=== PATIENT | female | born 1955 | race Caucasian/White ===

== ENCOUNTER 2021-10-30 07:07 | Day surgery (SDC) | payer OTHER, SELFPAY ==
--- OUTSIDE RECORDS SUMMARY | 2021-10-11 10:17 | XMS_ITS | Continuity of Care Document ---
:1955 Author Care Team Providers Name Role Phone TONY HEDRICK Attending Physician TONY HEDRICK Primary Care Physician Allergies, Adverse Reactions, Alerts Allergen Type Severity Reaction Last Verified Status Updated Aspirin Allergy Unknown NAUSEA, August 06, Yes Active VOMITING 2021 Ibuprofen Allergy Moderate GI UPSET August 06, Yes Active 2021 Naproxen Allergy Moderate GI UPSET August 06, Yes Active 2021 Penicillin v Allergy Severe rash August 06, Yes Activ e 2021 Citalopram Allergy Mild fatigue, August 06, Yes Active out of 2021 body Sulfa Allergy Unknown August 06, Yes Active Antibiotics 2021 Social History Smoking Status Status Start Date End Date Date of Observat ion Never smoked tobacco August 09, 2021 11:12am (finding) Additional Data Assigned Sex Female Problems Active Problems Medical Problem Onset Date Status Hyperlipidemia July 01, 2010 Active Irritable Bowel Syndrome July 01, 2010 Active Depression July 01, 2010 Active Hysteroscopy 2005 July 01, 2010 Resolved Tubal Ligation July 01, 2010 Resolved Encounter for laboratory testing Active for COVID-19 virus Medications Medication Status Dose Units Route Directions Qty Days Start End Ins tructions Date Date Cyclobenzapri Active 10 MG as needed ne Hcl Estradiol Active 1 GRAMS PV Daily 42.5 (Estrace Vaginal Cream) 0.1 Mg/Gm CRE Estradiol Active Vaginal (Estradiol) 10 Mcg TAB Metronidazole Active 1 KYLER TOP Twice A Day 60 August (Metrolotion) , 0.75 % LOT 2020 4:47pm Ondansetron Active 4 MG PO Every 6 30 Hcl (Zofran) Hours as 4 Mg TAB needed Pantoprazole Active 40 MG PO Daily 30 Sodium Sertraline Active 25 MG PO Daily 30 Hcl (Zoloft) 25 Mg TAB Tramadol Hcl Active 50-10 MG PO Every 6 30 0 Hours as needed Trazodone Hcl Active 100 MG PO Bedtime as 30 needed Acetaminophen Disconti 500-1 MG PO Every 6 100 June nued 000 Hours as er 9th, needed 2020 3:43pm 3:58pm Citalopram Disconti 1 TABLET PO Daily June Hydrobromide nued , (Celexa) 2010 Mg TAB 4:17pm 10:28a m Citalopram Disconti 1 TABLET PO Daily June Hydrobromide nued , (Celexa) 2010 Mg TAB 4:34pm 4:17pm Cyclobenzapri Disconti 1 - 2 TABLET PO Three Times 17 July Ju ne PRN MUSCLE ne Hcl nued A Day as , SPASM (Flexeril) 5 needed 2010 2010 Mg TAB 5:09pm 10:28a m Diclofenac Disconti August nued 2016 1:34pm Diclofenac Disconti 75 MG PO Twice A Day October Sodium nued 2018 11:24a m Doxycycline Disconti 100 MG PO Twice Daily July t Monohydrate nued For 10 Days 2019 12:38pm 1:59pm Estradiol Disconti 1 GRAMS PV Mwf 42.5 August (Estrace nued , Vaginal 2017 Cream) 0.01 % 1:34pm CRE Estradiol Disconti 25 MCG VA Twice January Vaginal nued Weekly Qhs , carolee (Vagifem) 25 2011 01, Mcg TAB 4:04pm 2018 3:58pm Estrogens Disconti 0 PV Daily Octoberobe Conjugated nued 13, r (Premarin 2010, Cream) 0.625 3:42pm 2010 Mg/1 Gm CRE 3:50pm Estrogens Disconti 0.625 MG VA Twice Octoberobe USE 1/ 2 Conjugated nued Weekly At 13, r APPLI CATOR (Premarin) Hs 2010, FULL 0.625 Mg CR 3:42pm 2010 3:50pm Methylprednis Disconti 1 PACK PO Once June DUGLAS E olone (Medrol nued , , DIRECT ED ON Dose-Basilio) 4 2010 2010 PACKAGE Mg TAB 5:09pm 10:28a m Naproxen Disconti 500 MG PO Twice A Day January (Naprosyn) nued , , 500 Mg TAB 2010 2016 4:06pm 1:34pm Naproxen Disconti 500 MG PO Twice A Day Octobe (Naprosyn) nued r 500 Mg TAB 2010 4:06pm Omeprazole Disconti 20 MG PO Daily nued 2018 3:34pm Omeprazole Disconti 20 MG PO Daily August nued 2017 4:06pm Ondansetron Disconti 4 MG PO Every 8 17 July Hcl nued Hours as , 2020 3:43pm Oxycodone Hcl Disconti 5 MG PO Every 4-6 November em nued Hours as needed 2020, 12:43pm 2020 2:47pm Oxycodone Hcl Disconti 5-10 MG PO Every 4-6 16 November nued Hours as , 2018 11:24a m Oxycodone Hcl Disconti 0.5-1 MG PO Every 6 September nued Hours as , needed 2018 2018 2:47pm 11:24a m Pantoprazole Disconti 20 MG PO Daily 17 October Sodium nued 2018 8:16am Pregabalin Disconti 50 MG PO Daily June (Lyrica) 50 nued , Mg CAP 2020 3:43pm Pregabalin Disconti 25 MG PO Twice A Day September (Lyrica) 25 nued , , Mg CAP 2010 2010 10:43am 3:19pm Probiotic Disconti 1 CAP OR Daily July Product nued , (Probiotic 2016 Formula) 11:36a Formula CAP m Tizanidine Disconti 4 MG July Hcl nued 2021 3:32pm Tizanidine Disconti 4 MG PO Every 25 November Hcl nued Hours as , (Zanaflex) 4 needed 2020 Mg CAP 12:38p m Tramadol Hcl Disconti 50-10 MG PO Q6h Prn 60 November M AX 400 (Ultram) 50 nued 0 13th, MG/DAY Mg TAB 2020 12:38p m Tramadol Hcl Disconti 50 MG PO Q4-6H Prn 180 Novemoctober MAX 400 (Ultram) 50 nued r , MG/DAY Mg TAB 2010 2018 10:10am 11:24a m Tramadol Hcl Disconti 50 MG PO Q4-6H Prn 60 January mb MAX 400 (Ultram) 50 nued , er MG/DAY Mg TAB 2010 06, 4:05pm 2010 10:10a m Tramadol Hcl Disconti 50 MG PO Q4-6H Prn 30 October Octobe MAX 400 (Ultram) 50 nued , r MG/DAY Mg TAB 2010, 4:32pm 2010 4:05pm Trazodone Hcl Disconti 2 TABS OR Bedtime 180 Novemoctober nued r , 2010 10:09am 11:24a m Trazodone Hcl Disconti 50 MG OR Bedtime 90 January b nued , er 2010 06, 4:05pm 2010 10:09a m Trazodone Hcl Disconti 50 MG OR Bedtime Octobe nued r 2010 4:05pm Zolpidem Disconti 12.5 MG PO Daily November Tartrate Er nued 2020 9:49am Immunizations Immunization Event Date Not Given Dose Black Leather Buffer Lot Vac cine Reason Number Number Informatio n Statement (VIS) Deta il COVID-19 Pfizer May 082020 COVID-19 Pfizer May 29, 2020 COVID-19 Pfizer February 062020 Herpes Zoster May 212015 Influenza January 292011 Influenza January 28, 2015 Influenza December 22, 2016 Influenza December 212016 Influenza December 232017 Influenza December 14, 2018 Influenza December 192020 Shingrix July 282017 Shingrix February 18, 2017 Tdap March 20 (adolescent/adul 2013 t) Medical Equipment Device Date Implanted Device Details Arthrex September 27, 2018 STEPHEN: [id number] Issuing Agency: [employer] Device Id: [id number] Expiration Date: 04-21-27 Lot Number: [id number] Arthrex November 02, 2019 STEPHEN: [id number] Issuing Agency: [facility] Device Id: [id number] Expiration Date: 06-27-29 Lot Number: [id number] Advance Directives Advance Directive Response Recorded Date/Time Does Pt have Health Care No December 16 9:42am Directive? Has patient completed a No December 03 9:59am Health Care Directive? Insurance Providers Guarantor Mary Jo Gonsalves Address [address] [place] [address] Contact Info. Home Phone: CELL Payer Policy Id Coverage Id Subscriber's Subscriber Id Effective E xpiration Name Date Date [facility] [id number] Mary Gonsalves Choice
[2021-10-28] MEDS: CEFAZOLIN 2 GM INJ IVP (08:36)
[2021-10-30] VITALS (23 sets, daily range): BP systolic 105–174; BP diastolic 71–118; PULSE 54–80; RESP 14–18; TEMP 35.6–37.2; O2SAT 97–100; BMI 17.5
[2021-10-30] MEDS: LACTATED RINGERS 1000 ML 1,000 ML 100 ML IV (07:50)
[2021-10-30] MEDS: CELECOXIB 200 MG CAPSULE PO ×2 (07:55→20:42)
[2021-10-30] MEDS: OXYCODONE (CR) 10 MG TAB.ER.12H PO (07:55)
[2021-10-30] MEDS: ACETAMINOPHEN 500 MG TABLET 1000 MG PO ×3 (07:55→20:41)
[2021-10-30] MEDS: MIDAZOLAM HCL 1 MG/ML inj IVP (08:05)
[2021-10-30] MEDS: fentaNYL 100 MCG/2 ML inj IVP (08:05)
--- NOTE | 2021-10-30 08:50 | W.PM.NB ---
Nerve Block Nerve Block Time Seen by Provider: 08:00 Date Seen: 10/30/21 Type of block requested by surgeon for post-operative analgesia: adductor canal Side: right Time out performed: Yes Verification of patient name: Yes Verification of date of : Yes Site marking: site marked Name of person performing procedure: Robin Assistants, if any: Gelymbrogoleksandr Continuous monitoring Was continuous monitoring of O2 sat, B/P, hand laminator, recorded every 15 minutes?: Yes Procedure Checklist: sterile prep, needles and gloves Ultrasound guided. Images saved: Yes Medications given in 5ml increments after negative aspiration: Ropivicaine %: 0.5 mL: 15 Needle gauge: 22 Decadron (mg): 8 Precedex (mcg): 20 Patient tolerated procedure well: Yes Additional comments: Needle noted adjacent to nerve
--- NOTE | 2021-10-30 08:52 | P.NB_ITS ---
Nerve Block Nerve Block Time Seen by Provider: 08:00 Date Seen: 10/30/21 Type of block requested by surgeon for post-operative analgesia: geniculars Side: right Time out performed: Yes Verification of patient name: Yes Verification of date of : Yes Site marking: site marked Name of person performing procedure: Robin Assistants, if any: Gelymbrogoleksandr Continuous monitoring Was continuous monitoring of O2 sat, B/P, gambling monitor, recorded every 15 minutes?: Yes Procedure Checklist: sterile prep, needles and gloves Medications given in 5ml increments after negative aspiration: Ropivicaine %: 0.5 mL: 6 Needle gauge: 25 Patient tolerated procedure well: Yes
--- NOTE | 2021-10-30 10:03 | CRLHL7_ITS ---
For Patients: As a result of the Cures Act, medical imaging exams and procedure reports are released immediately into your electronic medical record. You may view this report before your referring provider. If you have questions, please contact your health care provider. Indication: POST OP RIGHT TKA Technique: 2 views right knee Findings/Impression: Hardware from a right total knee arthroplasty is in satisfactory position. Bone alignment is normal. No sign of acute fracture. Postop changes are within normal limits. Dictated by Reese Rosario MD @ 10/30/2021 11:10:47 AM (Electronically Signed)
--- NOTE | 2021-10-30 10:32 | SUR.PREOP ---
TIME?OUT:?0804 PT/Parris Escobedo RN/Dr. Robin MDA?VERIFICATION?OF?SURGICAL?SITE right knee,?PROCEDURE,?AND?CONSENT OBTAINED?PRIOR?TO?INVASIVE?PROCEDURE.
--- NOTE | 2021-10-30 10:40 | W.ANESCHARGE ---
Anesthesia Charges Start Date/Time Anesthesia Start Date: 10/30/21 Anesthesia Start Time: 08:23 Stop Date/Time Anesthesia Stop Date: 10/30/21 Anesthesia Stop Time: 10:40 Summary Emergency: No
--- NOTE | 2021-10-30 11:17 | P.ORPRC_ITS ---
Procedure Note Procedure: PREOPERATIVE DIAGNOSIS: 1. Right knee osteoarthritis, primary, severe POSTOPERATIVE DIAGNOSIS: 1. Right knee osteoarthritis, primary, severe PROCEDURE: 1. Right total knee arthroplasty SURGEON: Israel Lund MD. FILLING MACHINE TENDER: Lazaro LAW - Of note, a skilled hardware sales assistant was critical for this case to aid in patient positioning, tissue retraction, limb manipulation/positioning, and closure. ANESTHESIA: [Spinal] anesthetic IMPLANTS: DePuy J&J all cemented TKA - [Attune] PS femur size 3 regular, size 2 tibia, 5 mm poly spacer, 32 mm patella TOURNIQUET: [90 min at 225 torr] EBL: [50 ml] COMPLICATIONS: [None evident] INDICATIONS: The patient is a pleasant 66-year-old female who has experienced severe right knee pain and difficulty bearing weight. Workup included x-rays which revealed severe osteoarthrosis in the knee. Given the deformity, the dysfunction, and the pain, as well as the failure of nonoperative management, recommendation was made for surgery. FINDINGS: Full-thickness chondral loss medial femoral condyle and medial tibial plateau. Substantial chondromalacia patellofemoral compartment as well. No loose bodies. Moderate effusion. DESCRIPTION OF PROCEDURE: Following a thorough discussion of risks, benefits, and alternatives consent was obtained and the right knee was marked. The patient was brought to the operating room and placed supine on the operating table. Induction of anesthesia was undertaken. 1 g IV Ancef and 500 mg tranexamic acid was administered within 1 hr of incision preoperatively. Proper time-out was performed identifying proper patient, site, procedure. The operative extremity was prepped and draped in the appropriate sterile fashion using ChloraPrep after the patient was positioned supine with all bony prominences well padded. A longitudinal, anterior, midline skin incision was made starting approximately 3cm proximal to the superior pole of the patella and advanced distal to the tibial tubercle. A median parapatellar arthrotomy was created. A medial subperiosteal sleeve was created with knife, maldonado elevator and curved osteotome. The retropatellar fatpad was resected and the synovium in the suprapatellar pouch excised to visualize the anterior femoral cortex. Femoral preparation was performed via an intramedullary guide. Step drill allowed access into the femoral canal. The distal cutting guide was placed with [5]? of valgus and 10 mm cut on the distal femur initially but another 2 mm did require resection. Femur was sized using a [posterior] referencing guide in [3]? of external rotation. This found have a best fit with the sizing noted above. The 4 in 1 cutting block was then placed, and the distal femur shaped accordingly. The box cut was then created and the trial implant inserted to confirm appropriate fit. We turned our attention to the proximal tibia. Extramedullary guide was utilized for cutting with the goal of being 90 degree cut from the mechanical axis of the tibia in the varus/valgus plane utilizing tibial crest as the primary alignment. Initially a [2] mm resection was performed from the medial tibial plateau. An additional 2 mm to require resection to again achieve proper balance in both flexion and extension to varus and valgus stress. The knee was able to achieve full extension as well comfortably. The patella was initially measured and found have a thickness of 18 mm. It was resected back to approximately 14 mm. It was sized to be a best fit with as noted above. This was drilled, trial placed. All trials were placed and found to have an excellent stability and balance. At this stage, trial implants were removed, the knee was thoroughly irrigated with normal saline, and the cement was mixed. After irrigation, the knee was thoroughly dried, and cement placed, with the real tibial and femoral implants placed along with the patella. Trial poly spacer was placed and confirmed to have excellent range of motion and full extension, and the real poly spacer opened and inserted. All extra cement was removed, and a 3 min Betadine soak performed. Finally, a final irrigation round with normal saline was performed. Closure performed with 0 Vicryl and #0 Stratafix for the quad tendon/retinaculum. 2-0 Vicryl for the subcutaneous and 4-0 Stratafix for subcuticular closure. Dressings were applied and the patient was awoken from anesthesia after the tourniquet deflated and transferred the PACU in stable c ondition. A skilled hardware sales assistant was critical for this case to aid in patient positioning, tissue retraction, bone exposure, limb manipulation/positioning, patient safety, and closure. PLAN: 1. Weight bear as tolerated operative extremity. 2. 23 hr perioperative antibiotics. 3. Ice. 4. PT/OT consults for ambulation assistance/mobility education. 5. Social work consult for discharge planning. 6. DVT prophylaxis with at SCDs, Shahab Momin, and [aspirin twice daily.] Anesthesia: spinal Surgeon: Israel Lund Operations Management Trainee: Lazaro Escobedo
--- NOTE | 2021-10-30 12:09 | W.ANESCHARGE ---
Anesthesia Charges Start Date/Time Anesthesia Start Date: 10/30/21 Anesthesia Start Time: 08:23 Stop Date/Time Anesthesia Stop Date: 10/30/21 Anesthesia Stop Time: 10:40 Summary Emergency: No
[2021-10-30] MEDS: LACTATED RINGERS 1000 ML 1,000 ML 75 ML IV (12:38)
[2021-10-30] MEDS: OXYCODONE 5 MG TABLET PO ×4 (12:38→22:14)
--- NOTE | 2021-10-30 13:31 | P.IMCN_ITS ---
Date of Consult Consult date: 10/30/21 Requesting Physician: Orthopedics (Dr. Dinh) Primary Care Provider: Judith Encinas PA-C Consult Narrative Reason for consult: Medical management of comorbidities Narrative: Shelley Carlos is a 66 year old female who was admitted to the hospital today for a right TKA. She had no complications during surgery or anesthesia administration. Hospitalist team was consulted given patient's comorbidities of mild anxiety, insomnia, chronic pain, arthritis, postmenopausal status on topical HRT, and GERD. Patient's PCP is Judith Encinas locally. Her preoperative exam was done less weak and identified no concerns. Preoperative hemoglobin was 12.8, she was noted to have a normal GFR as well. Patient has no history of blood clots, she is not on oral HRT. She is a nondrinker, non tobacco user, recently retired from [employer], and lives locally with her . Review of Systems Status of ROS: Reports: 10 or more systems reviewed and unremarkable except as noted in History and below PFSH PFS Medical History (Updated 10/30/21 @ 13:36 by Evelyn Machado MD) Hyperlipidemia IBS (irritable bowel syndrome) Osteoarth NOS-other site Osteoarthritis Rosacea Surgical History (Updated 10/15/21 @ 13:53 by Zaynab Josue RN) H/O tubal ligation (02/04/89) History of arthroscopy of left shoulder (09/27/18) History of arthroscopy of right shoulder (08/21/16) Trigger finger of right hand (12/08/11) Family History (Updated 10/15/21 @ 13:20 by Zaynab Josue, RN) Mother Ovarian cancer CHF (congestive heart failure) History of open heart surgery High blood pressure Obesity Osteoarthritis Father COPD (chronic obstructive pulmonary disease) High blood pressure Racing heart beat Brother Lung cancer Racing heart beat Heart attack Sister Multiple sclerosis Social History Smoking Status: Never smoker How often do you have a drink containing alcohol: never AUDIT-C Alcohol total score: 0 Non-prescribed substance use: denies use Caffeine: No service: No Meds Home Medications and Allergies Home Medications Medication Instructions Recorded Confirmed Type cyclobenzaprine 10 mg tablet 10 mg PO BID 10/29/21 10/29/21 History estradiol 0.01% (0.1 mg/gram) 1 appful VAGINAL MOWEFR 10/29/21 10/29/21 History vaginal cream (Estrace) estradiol 10 mcg vaginal tablet 10 mcg VAGINAL 2XW 10/29/21 10/29/21 History ondansetron HCl 4 mg tablet 4 mg PO Q8H PRN 10/29/21 10/29/21 History pantoprazole 40 mg tablet,delayed 40 mg PO QAM 10/29/21 10/30/21 History release sertraline 25 mg tablet 25 mg PO DAILY 10/29/21 10/30/21 History tramadol 50 mg tablet 75 mg PO Q6H PRN 10/29/21 10/30/21 History trazodone 100 mg tablet 200 mg PO HS 10/29/21 10/29/21 History Home Medication Comments: Confirmed with patient Allergies Allergy/AdvReac Type Severity Reaction Status Date / Time penicillin V Allergy Mild Rash Verified 10/30/21 07:37 ibuprofen Allergy ulcer Verified 10/30/21 07:37 Sulfa (Sulfonamide Allergy Rash Verified 10/30/21 07:37 Antibiotics) Exam Narrative: Exam Narrative: GEN: Alert and oriented, answering questions appropriately, eating lunch during our exam HEENT: Normal external ears, EOMIs bilaterally, no scleral icterus CV: RRR, No concerning murmurs, rubs, or gallops R: LCTA bilaterally without concerning wheezing, rales, or rhonchi Ext: wwp, no concerning edema Skin: No concerning skin lesions or rashes on exposed skin Neuro: Nonfocal, no resting tremor Psych: Appropriate Const: Vital Signs, click to edit/add: Vital Signs - 24 hr 10/30/21 08:04 10/30/21 08:06 10/30/21 08:10 Temperature 97.3 F L Pulse Rate 76 80 79 Pulse Rate [Pulse Oximeter] Respiratory Rate 16 16 16 Blood Pressure 132/82 138/77 121/81 Blood Pressure [Le ft Arm] Pulse Oximetry 99 99 99 10/30/21 08:15 10/30/21 10:37 10/30/21 10:40 Temperature 97 F L Pulse Rate 73 62 60 Pulse Rate [Pulse Oximeter] Respiratory Rate 16 14 16 Blood Pressure 110/71 105/71 115/71 Blood Pressure [Le ft Arm] Pulse Oximetry 99 98 97 10/30/21 10:45 10/30/21 10:50 10/30/21 10:55 Temperature 97.2 F L 97.2 F L Pulse Rate 62 60 60 Pulse Rate [Pulse Oximeter] Respiratory Rate 16 16 16 Blood Pressure 117/74 116/77 112/72 Blood Pressure [Le ft Arm] Pulse Oximetry 98 97 10/30/21 11:00 10/30/21 11:30 10/30/21 11:45 Temperature Pulse Rate 61 Pulse Rate [Pulse Oximeter] 55 L 61 Respiratory Rate 16 14 14 Blood Pressure 126/76 Blood Pressure [Le ft Arm] 115/75 131/81 Pulse Oximetry 99 100 98 10/30/21 12:00 10/30/21 12:15 10/30/21 12:19 Temperature 96.1 F L Pulse Rate 54 L Pulse Rate [Pulse Oximeter] 66 73 Respiratory Rate 14 14 14 Blood Pressure Blood Pressure [Le ft Arm] 136/84 144/83 H Pulse Oximetry 99 99 10/30/21 12:30 Temperature Pulse Rate Pulse Rate [Pulse Oximeter] 62 Respiratory Rate 14 Blood Pressure Blood Pressure [Le ft Arm] 148/118 H Pulse Oximetry 99 Assessment and Plan Assessment and plan (1) GERD (gastroesophageal reflux disease): Status: Acute (2) Insomnia: Status: Acute (3) Chronic pain: Status: Acute (4) Osteoarth NOS-other site: Status: Acute Plan Continue home medications for comorbidities as noted above monitor pain management closely given chronic tramadol use as an outpatient.
--- NOTE | 2021-10-30 15:12 | PC.NURSE ---
Pt. up to floor at 1115. Pt. alert, oriented x3. denies nausea. tolerated reg. diet. Pt. rated pain in right Knee 5/10, 10mg Oxy administered it's coming back down. Dressing clean dry and intact, cryocuff to site. Pt. does not like ice water.
[2021-10-30] MEDS: HYDROmorphone 0.5 mg/0.5 ml inj IVP (15:37)
[2021-10-30] MEDS: ASPIRIN 81 MG TABLET EC PO (20:41)
[2021-10-30] MEDS: SENNOSIDES 1 TAB TABLET 2 TAB PO (20:42)
[2021-10-30] MEDS: CYCLOBENZAPRINE HCL 10 MG TABLET PO (20:42)
[2021-10-30] MEDS: TRAZODONE HCL 50 MG TABLET 200 MG PO (22:16)
[2021-10-31] MEDS: ACETAMINOPHEN 500 MG TABLET 1000 MG PO ×2 (02:01→08:23)
[2021-10-31 03:00] VITALS: BP 154/82; PULSE 73; RESP 16; TEMP 37.6; O2SAT 99
--- NOTE | 2021-10-31 06:11 | PC.NURSE ---
SHIFT NOTE [id number]: PT PLEASANT AND COOPERATIVE. AMBULATES WITH WALKER, GB, SBA. RIGHT KNEE DRESSING CDI. CRYO CUFF ON. PT RATES RLE PAIN 4-6/10 WITH RELIEF FROM SCHEDULED AND PRN MEDICATION (SEE MAR). PT VSS ON RA.
[2021-10-31 07:00] VITALS: BP 140/77; PULSE 77; RESP 16; TEMP 36.1; O2SAT 100
[2021-10-31 07:28] LABS: Basophils Percent Auto 0.1 % (0.0-3.0); Eosinophils Percent Auto 0.2 % (0.0-7.0); Hematocrit 35.9 % (33.0-51.0); Hemoglobin* 12.3 gm/dL (12.0-16.0); Immature Granulocytes Abs Auto 0.03 K/uL (0.00-0.30); Lymphocytes Percent Auto 23.4 % (20-44); Mean Corpuscular HGB Conc 34 gm/dL (32-36); Mean Corpuscular Hemoglobin 30 pg (26-34); Mean Corpuscular Volume 88 fL (80-100); Monocytes Percent Auto 8.9 % (0.0-11.0); Neutrophils Percent Auto 67.2 % (42.0-72.0); Platelet Count* 283 K/uL (140-440); RDW Coefficient of Variation % 12.4 % (11.5-15.5); White Blood Count* 15.93 K/uL (4.50-11.00)
[2021-10-31 07:32] LABS: Slide Review Reflex No
[2021-10-31 07:46] LABS: INR 1.07 (0.91-1.10); Prothrombin Time 14.3 Seconds
[2021-10-31] MEDS: OXYCODONE 5 MG TABLET PO ×2 (07:48→12:01)
[2021-10-31 07:50] LABS: Chloride* 103 mmol/L (96-114); Potassium* 3.4 mmol/L (3.6-5.1); Sodium* 139 mmol/L (135-149)
[2021-10-31 07:53] LABS: Carbon Dioxide* 27 mmol/L (20-32); Creatinine* 0.7 mg/dL (0.5-1.5); Est. Creatinine Clearance* 34.48; Estimated Glomerular Filt Rate 95.32
[2021-10-31 07:54] LABS: Blood Urea Nitrogen* 13 mg/dL (7-30); Calcium* 8.9 mg/dL (8.4-10.6); Glucose* 117 mg/dL (60-115)
[2021-10-31] MEDS: ASPIRIN 81 MG TABLET EC PO (08:24)
[2021-10-31] MEDS: SERTRALINE 50 MG TABLET 25 MG PO (08:24)
[2021-10-31] MEDS: CYCLOBENZAPRINE HCL 10 MG TABLET PO (08:24)
[2021-10-31] MEDS: SENNOSIDES 1 TAB TABLET 2 TAB PO (08:25)
[2021-10-31] MEDS: CELECOXIB 200 MG CAPSULE PO (08:25)
[2021-10-31] MEDS: OMEPRAZOLE 20 MG CAPSULE DR 40 MG PO (08:25)
--- NOTE | 2021-10-31 10:24 | NUTR.NU ---
RDN with nutrition screen related to underweight BMI. RDN visited with patient whom reported meals have been going well for her. 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 She reports having issues after surgery with some weight loss and dumping syndrome. She limits her carbohydrate and fat intake. She reports some weight loss after surgery, however her weight has been stable recently. Current weight 87 lbs; weight 08/06/21 85 lbs. Height 59 inches; BMI is underweight at 17.6 kg/m2. Regular diet with meal intakes 75-100% x2 since admit. Patient had no questions or concerns at this time. No nutrition interventions. RDN will continue to monitor and follow-up prn.
--- NOTE | 2021-10-31 10:38 | P.DS_ITS ---
DS: Providers Provider Primary care physician: Judith Encinas PA-C Consults: 10/30/21 11:00 Consult to Occupational Therapy [CONS] Routine Comment: See nursing Activity Order Reason(s) for OT Consult:: Evaluate and Treat Any Restrictions?:: No Restrictions Consult to Physical Therapy [CONS] Routine Comment: Ambulate in the rowell today. Reason(s) for PT Consult:: Evaluate and Treat Any Restrictions?:: No Restrictions Consult to Physician [CONS] Routine Comment: Consulting Provider: Hospitalists Has provider been notified: No Consult to Asphalt Still Operator [CONS] Routine Comment: Reason for Consult:: Discharge Planning Needs Attending Physician on discharge: Israel Lund MD DS: Diagnosis Discharge Diagnosis (1) Osteoarth NOS-other site: Status: Acute DS: Summary Hospital Course Hospital Course: Kirsten was admitted to the hospital on 10/30/2021 for right TKA. Hospitalist team was consulted given comorbidities as noted in H&P. Patient did well postoperatively, had quite a bit of pain right after surgery, but much improved on postoperative day 1. Her comorbidities remained stable. Only change made to home medications upon discharge is discontinuation of tramadol (was on this preoperatively, will be discharged home on oxycodone. Recommend follow-up with PCP in 3-4 weeks to discuss pain management going forward, as patient may need less tramadol now that she has had her knee replaced.) Kirsten will be discharged home today with routine follow-up with therapies, orthopedic surgery, and PCP. Time Spent with Patient Time attestation: Total time spent providing and/or coordinating discharge services: Time spent: Less than 30 minutes Exam Narrative: Exam Narrative: GEN: Alert and oriented, answering questions appropriately HEENT: Normal external ears, EOMIs bilaterally, no scleral icterus CV: RRR, No concerning murmurs, rubs, or gallops R: LCTA bilaterally without concerning wheezing, rales, or rhonchi Ext: wwp, no concerning edema Skin: No concerning skin lesions or rashes on exposed skin Neuro: Nonfocal Psych: Appropriate Const: Vital Signs, click to edit/add: Vital Signs - 24 hr 10/30/21 10:40 10/30/21 10:45 10/30/21 10:50 Temperature 97.2 F L Pulse Rate 60 62 60 Pulse Rate [Pulse Oximeter] Respiratory Rate 16 16 16 Blood Pressure 115/71 117/74 116/77 Blood Pressure [Le ft Arm] Pulse Oximetry 97 98 10/30/21 10:55 10/30/21 11:00 10/30/21 11:30 Temperature 97.2 F L Pulse Rate 60 61 Pulse Rate [Pulse Oximeter] 55 L Respiratory Rate 16 16 14 Blood Pressure 112/72 126/76 Blood Pressure [Le ft Arm] 115/75 Pulse Oximetry 97 99 100 10/30/21 11:45 10/30/21 12:00 10/30/21 12:15 Temperature Pulse Rate Pulse Rate [Pulse Oximeter] 61 66 73 Respiratory Rate 14 14 14 Blood Pressure Blood Pressure [Le ft Arm] 131/81 136/84 144/83 H Pulse Oximetry 98 99 99 10/30/21 12:19 10/30/21 12:30 10/30/21 13:00 Temperature 96.1 F L Pulse Rate 54 L Pulse Rate [Pulse Oximeter] 62 68 Respiratory Rate 14 14 14 Blood Pressure Blood Pressure [Le ft Arm] 148/118 H 155/80 H Pulse Oximetry 99 100 10/30/21 14:00 10/30/21 15:00 10/30/21 16:00 Temperature 97.0 F L 96.1 F L 97.4 F L Pulse Rate Pulse Rate [Pulse Oximeter] 74 76 69 Respiratory Rate 14 18 18 Blood Pressure Blood Pressure [Le ft Arm] 164/98 H 145/100 H 138/72 Pulse Oximetry 98 99 100 10/30/21 17:00 10/30/21 20:30 10/30/21 23:00 Temperature 97.9 F 98.9 F 99.0 F Pulse Rate Pulse Rate [Pulse Oximeter] 71 78 78 Respiratory Rate 18 18 18 Blood Pressure Blood Pressure [Le ft Arm] 142/82 H 157/86 H 174/96 H Pulse Oximetry 98 97 99 10/31/21 03:00 10/31/21 07:00 Temperature 99.6 F 97.0 F L Pulse Rate Pulse Rate [Pulse Oximeter] 73 77 Respiratory Rate 16 16 Blood Pressure Blood Pressure [Le ft Arm] 154/82 H 140/77 H Pulse Oximetry 99 100 DS: Data Data Completed and Pending Labs on day of discharge: Labs from last 24 hours 10/31/21 10/31/21 10/31/21 06:31 06:31 06:31 WBC 15.93 H RBC 4.10 Hgb 12.3 Hct 35.9 MCV 88 MCH 30 MCHC 34 RDW Coeff of Liyah 12.4 Plt Count 283 Neut % (Auto) 67.2 Lymph % (Auto) 23.4 [place] % (Auto) 8.9 Eos % (Auto) 0.2 Baso % (Auto) 0.1 Neut # (Auto) 10.70 H Lymph # (Auto) 3.70 H [place] # (Auto) 1.40 H Eos # (Auto) 0.00 Baso # (Auto) 0.00 Abs Immat Gran (auto) 0.03 INR 1.07 Sodium 139 Potassium 3.4 L Chloride 103 Carbon Dioxide 27 BUN 13 Creatinine 0.7 Estimated Creat Clear 34.48 Glucose 117 H Calcium 8.9 Discharge Plan Discharge Disposition: Home, Self-Care Discharging Surgeon: Graham Marshall Follow-Up Appointment: as scheduled with ortho and therapy Prescriptions: New oxycodone 5 mg tablet 2.5 - 5 mg PO Q4-6H MDD 6 PRN (Reason: pain) Qty: 42 0RF Rx Instructions: Take as needed for pain: 2.5mg mild pain, 5mg moderate-severe pain. Wean as tolerated. acetaminophen 500 mg capsule 500 - 1,000 mg PO Q6H MDD 4000mg PRNQty: 100 0RF aspirin 81 mg tablet,delayed release (DR/EC) 81 mg PO BID Qty: 60 0RF celecoxib 200 mg capsule 200 mg PO BID Qty: 60 0RF sennosides-docusate sodium [Senna-S] 8.6-50 mg tablet 1 - 2 tab-cap PO BID Qty: 60 0RF Rx Instructions: Hold medication if experiencing loose stools. Continued cyclobenzaprine 10 mg tablet 10 mg PO BID 0RF estradiol [Estrace] 0.01 % (0.1 mg/gram) cream 1 appful vaginal MOWEFR 0RF Rx Instructions: for 14 days estradiol 10 mcg tablet 10 mcg vaginal 2XW 0RF ondansetron HCl 4 mg tablet 4 mg PO Q8H PRN0RF sertraline 25 mg tablet 25 mg PO DAILY 0RF trazodone 100 mg tablet 200 mg PO HS 0RF pantoprazole 40 mg tablet,delayed release (DR/EC) 40 mg PO QAM 0RF metronidazole 0.75 % gel 1 applic topical BID Qty: 45 0RF Held tramadol 50 mg tablet 75 mg PO Q6H PRN0RF Hold Instructions: hold this while on oxycodone, see PCP to discuss pain management in 3-4 weeks Activity Level: Activity as Tolerated, Weight Bearing as Tolerated, Use Cane and Use Walker Activity Detail: Wound: ?Do not remove original dressing; we will remove this at first postop visit in 1 week. Only remove dressing if integrity is in question. ?No immersing wound in water; showering okay; light scrub with your hand and body soap, rinse, dab dry ?Sutures are under the skin, will dissolve; allow surgical glue to come off naturally; do not scrub the wound or apply ointments/lotions ?Call our office with any redness that streaks, excessive drainage from the wound, or wound gapping. Ice/Elevate: ?Ice as needed for swelling and discomfort (cryocuff or ice pack); elevate frequently above the heart GRETEL socks: ?Wear for 1 month, remove for 1 hour 3 times per day ?These are frustrating to take on/off, but are important for blood clot prevention for 1 month after surgery Blood Clot Prevention (DVT): ?Medication: 81 mg aspirin by mouth twice daily (delayed release) Driving: ?Do not drive while taking narcotic pain medication ?Anticipate 4-6 weeks no driving if operative leg is driving leg Dental: ?No elective dental work for 6 months post-op. If there is an urgent/emergent dental need, contact our office for an antibiotic prescription. Smoking/Alcohol: ?Do not smoke; do no drink alcohol especially when taking postoperative oral narcotic medication Seek Care from you Primary Care Provider if you experience the following issues in the postoperative phase and beyond: ?Bacterial infections such as: pneumonia, bacterial skin infection (cellulitis), UTI, high fever, chills unrelated to the operative body part - call your primary care physician urgently for treatment in hopes to protect your health and the metal implant. Referrals: ?PT, OT per patient preference - evaluate treat total right knee arthroplasty protocol (the training, ROM, ADLs, knee-high Gretel socks) Follow up: ?Ortho surgeon follow-up in 6 weeks; repeat radiographs three views right knee ?PA-C visit in 1 week *If there are any acute concerns regarding your surgery, please call our orthopedic clinic ([phone]) Discharge Diet: Regular Patient Instructions: Surgical Site Infections (DC) Additional Instructions: See PCP in 3-4 weeks to discuss pain management Forms: Work/Release Restrictions Follow-up: Judith Encinas PA-C [Primary Care Provider] - Graham Marshall PA-C [Physician Drawing Kiln Supervisor] - 11/14/21 8:30 am Discharge Orders: Discharge Order (Routine); Ordered 10/31/21 Ordered By: Evelyn Machado
--- NOTE | 2021-10-31 12:35 | PC.NURSE ---
DISCHARGE: PATIENT DISCHARGED TO HOME WITH , UP SBA WITH WALKER AND BELT TOLERATING WELL, AT TIMES PATIENT DOES EXPRESS INCREASED PAIN WITH MOVEMENT IN RIGHT KNEE, THIS GETS BETTER AT REST, WITH ICE AND AFTER PAIN MEDICATION, RATING PAIN IN RIGHT KNEE 4-6/10, DRESSING CDI, CYROCUFF TO SITE, TOLERATING REGULAR DIET, IV REMOVED, PATIENT AND FERNANDOAND VERBALIZED UNDERSTANDING OF DISCHARGE INFORMATION AND HAD NO FURTHER QUESTIONS AT THIS TIME.
--- NOTE | 2021-10-31 16:39 | PM.ORPN ---
Subjective Subjective Date Seen: 10/31/21 Principal diagnosis: Status postop day 1 right total knee arthroplasty Interval history: Patient reports doing well. No acute events over night. Some difficult pain management initially after surgery, thought to be related to her chronic tramadol use. Pain managed with scheduled /PRN medications and ice. She is doing better today with pain. DVT prophylaxis 81 mg aspirin by mouth twice daily, bilateral knee high Shahab stockings, and SCDs. She states feeling quite cold. No fevers chills, aches, N/V, CP, SOB/ANSARI, tachycardia, or lightheadedness. Ortho Exam Narrative Exam Narrative: -Patient appears comfortable in bed, covered with numerous blankets and a stocking cap; no apparent acute distress -Alert and oriented times 3 -Operative knee swollen; soft tissues supple; no obvious erythema. Ecchymosis minimal. Warmth appropriate -Surgical dressing clean, dry, intact; no obvious drainage, no erythematous streaking peripheral to the bandage -bilateral calves soft, no significant swelling, edema, tenderness, erythema, discoloration, warmth, or palpable cords -2+ DP/PT pulses, intact dermatomes and myotomes distally (5/5 strength) Const Vital Signs, click to edit/add: Vital Signs - 24 hr 10/30/21 17:00 10/30/21 20:30 10/30/21 23:00 Temperature 97.9 F 98.9 F 99.0 F Pulse Rate [Pulse Oximeter] 71 78 78 Respiratory Rate 18 18 18 Blood Pressure [Left Arm] 142/82 H 157/86 H 174/96 H Pulse Oximetry 98 97 99 10/31/21 03:00 10/31/21 07:00 Temperature 99.6 F 97.0 F L Pulse Rate [Pulse Oximeter] 73 77 Respiratory Rate 16 16 Blood Pressure [Left Arm] 154/82 H 140/77 H Pulse Oximetry 99 100 Assessment and Plan Assessment and plan (1) Osteoarthritis of right knee: Problem details: Status post right total knee arthroplasty (POD 1) Status: Acute Plan - Complete 23 hour perioperative antibiotics. - PT/OT consult for education and assistance. - Social work consult for discharge planning - Prescribed analgesics as needed - DVT prophylaxis: 81 mg aspirin by mouth twice daily, bilateral knee high Shahab Hose stockings and SCDs. We understand the patient has some issues with IBS, GERD. The aspirin should be in enteric coated with delayed release. If she takes this with food, she should be okay. - Anticipation is for discharge to home with spouse today 10/31/2021 if the patient remains medically stable, pain is controlled, and they are safe with mobilization.
--- NOTE | 2021-10-31 16:45 | P.DS_ITS ---
DS: Providers Provider Date Seen: 10/31/21 Date of admission: Med surg recovery 10/30/2021 Primary care physician: Judith Encinas PA-C Consults: 10/30/21 11:00 Consult to Occupational Therapy [CONS] Routine Comment: See nursing Activity Order Reason(s) for OT Consult:: Evaluate and Treat Any Restrictions?:: No Restrictions Consult to Physical Therapy [CONS] Routine Comment: Ambulate in the rowell today. Reason(s) for PT Consult:: Evaluate and Treat Any Restrictions?:: No Restrictions Consult to Physician [CONS] Routine Comment: Consulting Provider: Hospitalists Has provider been notified: No Consult to [employer] Strip Gauger [CONS] Routine Comment: Reason for Consult:: Discharge Planning Needs Attending Physician on discharge: Israel Lund MD Date of Discharge: 10/31/21 DS: Diagnosis Discharge Diagnosis (1) Osteoarthritis of right knee: Status: Acute Problem details: Status post right total knee arthroplasty (POD 1) DS: Summary Hospital Course Hospital Course: Kirsten was admitted to the hospital on 10/30/2021 for right TKA. Hospitalist team was consulted given comorbidities as noted in H&P. Patient did well postoperatively, had quite a bit of pain right after surgery, but much improved on postoperative day 1. Her comorbidities remained stable. Only change made to home medications upon discharge is discontinuation of tramadol (was on this preoperatively, will be discharged home on oxycodone. Recommend follow-up with PCP in 3-4 weeks to discuss pain management going forward, as patient may need less tramadol now that she has had her knee replaced.) Kirsten will be discharged home today with routine follow-up with therapies, orthopedic surgery, and PCP. The patient has a history of right knee osteoarthritis, primary, severe. After appropriate preoperative evaluation, the patient underwent right total knee arthroplasty. Postoperatively given anticoagulation for deep vein thrombosis prophylaxis. They progressed to PT/OT and were felt ready and prepared for discharged to home with appropriate pain medication and anticoagulation me dications. Status at Discharge Functional status at discharge: uses cane/walker Overall status at discharge: patient is progressing back to baseline Time Spent with Patient Time attestation: Total time spent providing and/or coordinating discharge services: Time spent: Less than 30 minutes Exam Const: Vital Signs, click to edit/add: Vital Signs - 24 hr 10/30/21 17:00 10/30/21 20:30 10/30/21 23:00 Temperature 97.9 F 98.9 F 99.0 F Pulse Rate [Pulse Oximeter] 71 78 78 Respiratory Rate 18 18 18 Blood Pressure [Le ft Arm] 142/82 H 157/86 H 174/96 H Pulse Oximetry 98 97 99 10/31/21 03:00 10/31/21 07:00 Temperature 99.6 F 97.0 F L Pulse Rate [Pulse Oximeter] 73 77 Respiratory Rate 16 16 Blood Pressure [Le ft Arm] 154/82 H 140/77 H Pulse Oximetry 99 100 DS: Data Data Completed and Pending Labs on day of discharge: Labs from last 24 hours 10/31/21 10/31/21 10/31/21 06:31 06:31 06:31 WBC 15.93 H RBC 4.10 Hgb 12.3 Hct 35.9 MCV 88 MCH 30 MCHC 34 RDW Coeff of Liyah 12.4 Plt Count 283 Neut % (Auto) 67.2 Lymph % (Auto) 23.4 [place] % (Auto) 8.9 Eos % (Auto) 0.2 Baso % (Auto) 0.1 Neut # (Auto) 10.70 H Lymph # (Auto) 3.70 H [place] # (Auto) 1.40 H Eos # (Auto) 0.00 Baso # (Auto) 0.00 Abs Immat Gran (auto) 0.03 INR 1.07 Sodium 139 Potassium 3.4 L Chloride 103 Carbon Dioxide 27 BUN 13 Creatinine 0.7 Estimated Creat Clear 34.48 Glucose 117 H Calcium 8.9 Discharge Plan Discharge Disposition: Home, Self-Care Discharging Surgeon: Graham Marshall Follow-Up Appointment: as scheduled with ortho and therapy Prescriptions: New oxycodone 5 mg tablet 2.5 - 5 mg PO Q4-6H MDD 6 PRN (Reason: pain) Qty: 42 0RF Rx Instructions: Take as needed for pain: 2.5mg mild pain, 5mg moderate-severe pain. Wean as tolerated. acetaminophen 500 mg capsule 500 - 1,000 mg PO Q6H MDD 4000mg PRNQty: 100 0RF aspirin 81 mg tablet,delayed release (DR/EC) 81 mg PO BID Qty: 60 0RF celecoxib 200 mg capsule 200 mg PO BID Qty: 60 0RF sennosides-docusate sodium [Senna-S] 8.6-50 mg tablet 1 - 2 tab-cap PO BID Qty: 60 0RF Rx Instructions: Hold medication if experiencing loose stools. Continued cyclobenzaprine 10 mg tablet 10 mg PO BID 0RF estradiol [Estrace] 0.01 % (0.1 mg/gram) cream 1 appful vaginal MOWEFR 0RF Rx Instructions: for 14 days estradiol 10 mcg tablet 10 mcg vaginal 2XW 0RF ondansetron HCl 4 mg tablet 4 mg PO Q8H PRN0RF sertraline 25 mg tablet 25 mg PO DAILY 0RF trazodone 100 mg tablet 200 mg PO HS 0RF pantoprazole 40 mg tablet,delayed release (DR/EC) 40 mg PO QAM 0RF metronidazole 0.75 % gel 1 applic topical BID Qty: 45 0RF Held tramadol 50 mg tablet 75 mg PO Q6H PRN0RF Hold Instructions: hold this while on oxycodone, see PCP to discuss pain management in 3-4 weeks Activity Level: Activity as Tolerated, Weight Bearing as Tolerated, Use Cane and Use Walker Activity Detail: Wound: ?Do not remove original dressing; we will remove this at first postop visit in 1 week. Only remove dressing if integrity is in question. ?No immersing wound in water; showering okay; light scrub with your hand and body soap, rinse, dab dry ?Sutures are under the skin, will dissolve; allow surgical glue to come off naturally; do not scrub the wound or apply ointments/lotions ?Call our office with any redness that streaks, excessive drainage from the wound, or wound gapping. Ice/Elevate: ?Ice as needed for swelling and discomfort (cryocuff or ice pack); elevate frequently above the heart GRETEL socks: ?Wear for 1 month, remove for 1 hour 3 times per day ?These are frustrating to take on/off, but are important for blood clot prevention for 1 month after surgery Blood Clot Prevention (DVT): ?Medication: 81 mg aspirin by mouth twice daily (delayed release) Driving: ?Do not drive while taking narcotic pain medication ?Anticipate 4-6 weeks no driving if operative leg is driving leg Dental: ?No elective dental work for 6 months post-op. If there is an urgent/emergent dental need, contact our office for an antibiotic prescription. Smoking/Alcohol: ?Do not smoke; do no drink alcohol especially when taking postoperative oral narcotic medication Seek Care from you Primary Care Provider if you experience the following issues in the postoperative phase and beyond: ?Bacterial infections such as: pneumonia, bacterial skin infection (cellulitis), UTI, high fever, chills unrelated to the operative body part - call your primary care physician urgently for treatment in hopes to protect your health and the metal implant. Referrals: ?PT, OT per patient preference - evaluate treat total right knee arthroplasty protocol (the training, ROM, ADLs, knee-high Gretel socks) Follow up: ?Ortho surgeon follow-up in 6 weeks; repeat radiographs three views right knee ?PA-C visit in 1 week *If there are any acute concerns regarding your surgery, please call our orthopedic clinic ([phone]) Discharge Diet: Regular Patient Instructions: Acetaminophen (By mouth), Aspirin (By mouth), Oxycodone, Rapid Release (By mouth), Celecoxib (By mouth), Senna (By mouth), Knee Replacement (DC) Additional Instructions: See PCP in 3-4 weeks to discuss pain management Forms: Work/Release Restrictions Follow-up: Judith Encinas PA-C [Primary Care Provider] - 11/15/21 9:30 am Graham Marshall PA-C [Physician Consulting Solution Manager] - 11/14/21 8:30 am Discharge Orders: Discharge Order (Routine); Ordered 10/31/21 Ordered By: Evelyn Machado
== END 2021-10-31 12:15 | disposition home or self-care (01) ==
LOC: OR 07:10 → MEDSURG 07:16
PROVIDERS: PCP Physician Assistant Medical; Visit Provider Orthopaedic Surgery Sports Medicine
PROC: (CPT 27447; principal; 2021-10-30 08:30)
DX: M17.11 Unilateral primary osteoarthritis, right knee (principal); F41.9 Anxiety disorder, unspecified; K21.9 Gastro-esophageal reflux disease without esophagitis; G89.29 Other chronic pain; N95.9 Unspecified menopausal and perimenopausal disorder; E78.5 Hyperlipidemia, unspecified; K58.9 Irritable bowel syndrome, unspecified; G47.00 Insomnia, unspecified
CPT/HCPCS: 27447; 1402; 36415; 64447; 64454; 73560; 76942; 80048; 85025; 85610; 97110; 97116; 97161; 97165; 97530; A9270; C1776; J0690; J1100; J1170; J2250; J2405; J2704; J2795; J3010; J7120

== ENCOUNTER 2023-01-16 13:54 | Outpatient (CLI) | payer MEDICARE, SELFPAY ==
--- NOTE | 2023-01-16 14:00 | CRLHL7_ITS ---
For Patients: As a result of the Century Cures Act, medical imaging exams and procedure reports are released immediately into your electronic medical record. You may view this report before your referring provider. If you have questions, please contact your health care provider. BILATERAL SCREENING MAMMOGRAM WITH COMPUTER-AIDED DETECTION AND TOMOSYNTHESIS TECHNIQUE: CC and MLO views were obtained. These mammographic images have been obtained using full-field digital technique. These mammographic images were interpreted with the benefit of computer-aided detection. Breast Tomosynthesis was used in this interpretation. COMPARISON FILM: 08/27/21, 07/24/20, 04/22/19 FINDINGS: The breasts are heterogeneously dense, which may obscure small masses. IMPRESSION: There is no radiographic evidence for malignancy. ASSESSMENT: BI-RADS Category 1: Negative RECOMMENDATION: Routine screening mammogram in 1 year. A lay language report of this examination will be provided to the patient. Reese Rosario M.D. Diagnostic Radiologist [email or web address] PT/Dictated by: Reese Rosario MD @ 01/19/2023 11:46:00 AM (Electronically Signed)
== END 2023-01-16 13:55 | disposition home or self-care (01) ==
LOC: MAMMO 13:54
PROVIDERS: PCP Physician Assistant Medical; Visit Provider Physician Assistant Medical
DX: Z12.31 Encounter for screening mammogram for malignant neoplasm of breast (principal); R92.2 Inconclusive mammogram
CPT/HCPCS: 77063; 77067

== ENCOUNTER 2023-08-05 10:02 | Outpatient (CLI) | payer MEDICARE, SELFPAY ==
--- NOTE | 2023-08-05 10:15 | MR_ITS ---
Patient: MARY JO GONSALVES Facility:?[facility] Patient ID:?[id number] Site Patient ID:?[id number]. Site :?[id number] Study:?MRI-Spine Cervical W/O-08/05/2023 11:20:29 AM Ordering Physician:BEHZAD YOUNG Final Report: Indication: Cervicalgia Technique: Multiplanar, multisequence MRI of the cervical spine obtained without contrast. Comparison: Cervical spine x-ray 12/25/2022 Findings: Straightening of the normal cervical lordosis. Degenerative grade 1 anterolisthesis at C3-4, retrolisthesis at C4-5 and C6-7. No acute osseous abnormality. Bony ankylosis across the left C3-4 facet joint. Unremarkable bone marrow signal. Included posterior fossa structures appear within normal limits. The spinal cord is normal in course, caliber, and intrinsic signal. No suspicious findings identified in the paraspinal soft tissues. C2-C3: Facet arthropathy. No significant neural foraminal or spinal canal stenosis. C3-C4: Posterior disc-osteophyte complex, right asymmetric uncovertebral arthropathy, left facet joint ankylosis. No left, mild right neural foraminal narrowing. No spinal canal stenosis. C4-C5: Posterior disc-osteophyte complex with right subarticular protrusion, uncovertebral and facet arthropathy. No left, moderate right neural foraminal stenosis. Mild-moderate spinal canal narrowing. C5-C6: Posterior disc-osteophyte complex, right asymmetric uncovertebral arthropathy. No left, moderate right neural foraminal stenosis. Moderate spinal canal stenosis. C6-C7: Posterior disc-osteophyte complex, uncovertebral arthropathy. Moderate bilateral neural foraminal stenosis. Moderately severe spinal canal stenosis. C7-T1: Shallow posterior disc bulge, facet arthropathy. Incidental [id number]-right perineural cysts. No significant neural foraminal or spinal canal stenosis. Impression: 1. Cervical spondylosis, facet joint ankylosis, and low-grade degenerative spondylolisthesis as detailed. 2. At C4-C5, moderate right neural foraminal stenosis, with mild-moderate spinal canal narrowing. 3. At C5-C6, moderate right neural foraminal stenosis, with moderate spinal canal stenosis. 4. At C6-C7, moderate bilateral neural foraminal stenosis, with moderately severe spinal canal stenosis. Dictated by Santa Hughes MD @ 08/05/2023 2:17:47 PM Signed by:?Santa Hughes MD @08/05/2023 2:17:47 PM (Electronic Signature)
== END 2023-08-05 10:03 | disposition home or self-care (01) ==
LOC: MRI 10:03
PROVIDERS: PCP Physician Assistant Medical; Visit Provider Family Medicine
DX: M54.2 Cervicalgia (principal); M47.892 Other spondylosis, cervical region; M48.02 Spinal stenosis, cervical region
CPT/HCPCS: 72141

== ENCOUNTER 2023-08-10 06:10 | Day surgery (SDC) | payer MEDICARE, SELFPAY ==
[2023-08-10] VITALS (7 sets, daily range): BP systolic 113–133; BP diastolic 64–71; PULSE 71–84; RESP 16–18; TEMP 36.1; O2SAT 96–98
--- OUTSIDE RECORDS SUMMARY | 2023-08-10 06:12 | XMS_ITS | Clinical Summary ---
Author Name Unknown Organization [facility] Address [place], [place] [address] Care Team Providers Care In Home Aide Name Role Phone Judith Encinas Primary Care Provider Allergies Active Allergy Reactions Criticality Noted Date Comments Ibuprofen GI Upset Medium 01/04/2018 Penicillins 03/11/2008 Sulfa (Sulfonamide Antibiotics) Nausea Only 04/10/2015 Acetaminophen Stomach Upset 08/18/2016 Patient does take tylenol. Medications Medication Sig Dispensed Refills Start Date End Date Status cyclobenzaprine (FLEXERIL) 10 mg tabletIndications:M uscle spasm,Headache syndrome TAKE 1 TABLET BY MOUTH TWICE A DAY NEEDED FOR MUSCLE SPASM 90 Tablet 1 09/17/2022 Active traZODone (DESYREL) 100 mg tabletIndications:I nsomnia, unspecified type Take 1-2 Tablets (100-200 mg) by mouth at bedtime if needed for Sleep. 180 Tablet 3 12/09/2022 Active pantoprazole (PROTONIX) 40 mg delayed-release tabletIndications:C hronic GERD TAKE 1 TABLET BY MOUTH EVERY DAY 90 Tablet 2 01/25/2023 Active Yuvafem 10 mcg tab vaginal tabletIndications:A trophic vaginitis INSERT 1 TABLET INTO THE VAGINA EVERY THURSDAY AND THURSDAY. 24 Tablet 2 05/20/2023 Active sertraline (ZOLOFT) 50 mg tabletIndications:A nxiety Take 1 Tablet (50 mg) by mouth every morning. 90 Tablet 3 06/05/2023 Active traMADoL (ULTRAM) 50 mg tabletIndications:M yalgia TAKE 1.5 TABS BY MOUTH EVERY 6 HRS IF NEEDED FOR CHRONIC PAIN. MAX 6/DAY. 540 TABS MUST LAST 90 DAYS 540 Tablet 06/05/2023 Active ondansetron (ZOFRAN) 4 mg tabletIndications:N ausea Take 1 Tablet (4 mg) by mouth every 8 hours if needed for Nausea/Vomitin g. 30 Tablet 5 06/05/2023 Active celecoxib (CELEBREX) 200 mg capsuleIndications: Primary osteoarthritis of right knee TAKE 1 CAPSULE (200 MG) BY MOUTH ONCE DAILY WITH A MEAL. 90 Capsule 07/29/2023 Active estradioL (ESTRACE) 0.01% (0.1 mg/g) vaginal creamIndications:Me nopause syndrome INSERT ONE GRAM INTO THE VAGINA EVERY THURSDAY, THURSDAY AND THURSDAY 42.5 g 2 08/08/2023 Active celecoxib (CELEBREX) 200 mg capsuleIndications: Primary osteoarthritis of right knee TAKE 1 CAPSULE (200 MG) BY MOUTH ONCE DAILY WITH A MEAL. 90 Capsule 2 10/28/2022 07/29/19 24 Discontinued estradioL (ESTRACE) 0.01% (0.1 mg/g) vaginal creamIndications:Me nopause syndrome INSERT ONE GRAM INTO THE VAGINA EVERY THURSDAY, THURSDAY AND THURSDAY 42.5 g 05/20/2023 08/08/19 24 Discontinued Active Problems Problem Noted Date Diagnosed Date Protein-calorie malnutrition 07/19/2021 Duodenal stricture 03/30/2018 Overview: EGD 03/2018 benign appearing stricture of the second portion of the duodenum, retained vegetables in the stomach Hyperlipidemia 02/23/2015 Anxiety 07/07/2014 Pain medication agreement 12/14/2013 Overview: Tramadol usually 4 daily. Sometimes 6 daily. Agreement signed. Christina Williamson M.D. 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 Had side effects from 75mg dose. Rectal bleeding 04/21/2012 01/13/2022 Menopause syndrome 06/24/2011 Encounters Date Type Department Care Team Description 08/07/2023 Refill [facility] [address] [place] [address] Judith Encinas PA Refill Request (Estradiol) 07/31/2023 11:00 AM CDT Orders Only [facility] [address] [place] [address] Lab, [place] 07/31/2023 Travel 07/29/2023 Refill [facility] [address] [place] [address] Judith Encinas PA Refill Request (Celecoxib) 06/05/2023 1:40 PM RADIO EQUIPMENT REPAIRER Office Visit [facility] [address] [place] [address] Judith Encinas PA Medication Management (Needs refills) 06/05/2023 Travel 05/19/2023 Refill [facility] [address] [place] [address] Judith Encinas PA Refill Request (Sertraline) 05/15/2023 Refill [facility] [address] [place] [address] Judith Encinas PA Refill Request (Estradiol, Yuvafem, Sertraline) from Last 3 Months Immunizations Name Administration Dates Next Due AMB Influenza, IIV3 (Age >=3 years)(Flu Clinic Only) 01/30/2012 COVID-19 vaccine (Pfizer-Bio NTech 30mcg/0.3mL) 12YO+ BIVALENT PF, MDV 12/31/2021 COVID-19 vaccine (Pfizer-Bio NTech 30mcg/0.3mL) 12YO+ CARISSA-SUCROSE PF, MDV 08/05/2021 COVID-19 vaccine (Pfizer-Bio NTech 30mcg/0.3mL) PF, MDV 02/06/2021,05/29/2020,05/08/2020 Influenza Virus, Unspecified 12/14/2018,01/09/20 17 Influenza, High-dose Quadriv alent Inactivated 01/14/2021 Influenza, IIV3 (Age >=3 years) 01/30/2012 Influenza, IIV4 01/11/2018,01/29/2016 Pneumococcal Conj 20-valent (Prevnar 20) 024 Tdap 04/19/2014,05/05/2008 Zoster (Shingrix-RZV, recombinant) 02/18/2018, Zoster (Zostavax-ZVL, live) 06/10/2015 Family History Medical History Relation Name Comments Heart Disease Brother 2 racing heart Stroke Brother 3 Cancer Brother 4 esophageal canc er Heart Disease Father racing heart. Other Father emphysema Stroke Father Cancer-ovarian Mother Heart Disease Mother Cancer-breast No Family History Cancer-colon No Family History Relation Name Status Comments Brother 1 Alive Brother 2 Brother 3 Brother 4 Father Alive Mother (Age 85) chf, had u terine cancer, [place] Social History Tobacco Use Types Packs/Day Years Used Date Smoking Tobacco: Never Smokeless Tobacco: Never Tobacco Cessation:Counseling Given: Yes Alcohol Use Standard Drinks/Week Comments No 0 (1 standard drink = 0.6 oz pur e alcohol) PHQ-2 Answer Date Recorded PHQ-2 TOTAL SCORE 0 03/09/2023 Social Connections Answer Date Recorded Frequency of Communication with Friends and Fami ly 0 06/05/2023 Financial Resource Strain Answer Date R ecorded Difficulty of Paying Living Expenses 3 06/05/2023 Difficulty of Paying Living Expenses Not on file 06/05/2023 Food Insecurity Answer Date Recorded Worried About Running Out of Food in the Last Ye ar 1 06/05/2023 Transportation Needs Answer Date Record ed Lack of Transportation (Medical) 1 06/05/2023 Housing Stability Answer Date Recorded Unable to Pay for Housing in the Last Year 1 06/05/2023 Sex and Gender Information Value Date Recorded Sex Assigned at Not on file Gender Identity Not on file Sexual Orientation Not on file Obstetrics History Para Term AB IAB SAB Ectopic Multiple Livin g Live Births 3 3 3 Date Outcome GA Total Labor Labor/2nd/3rd Weight Sex Delivery Anes PTL [place] A1 A5 Name Cl in Para Para Para Last Filed Vital Signs Vital Sign Reading Time Taken Comments Blood Pressure 126/65 06/05/2023 1:44 PM RADIO EQUIPMENT REPAIRER Pulse 82 06/05/2023 1:44 PM RADIO EQUIPMENT REPAIRER Temperature 37.8 ??C (100.1 ??F) 04/05/2021 10:25 AM RADIO EQUIPMENT REPAIRER Respiratory Rate 16 11/28/2020 11:19 AM CDT Oxygen Saturation 98% 12/09/2022 11:56 AM CDT Inhaled Oxygen Concentration - - Weight 42.9 kg (94 lb 8 oz) 06/05/2023 1:[address] Height 149.9 cm (4' 11.02) 03/09/2023 11:13 AM RADIO EQUIPMENT REPAIRER Body Mass Index 19.08 03/09/2023 11:13 AM RADIO EQUIPMENT REPAIRER Plan of Treatment Health Maintenance Due Date Last Done Comments Hepatitis C screening for ag e 18-79 09/23/1973 Influenza for age 65+ 12/20/2023 01/14/2021 , 12/14/2018, 01/11/2018, Additional history exists Mammogram for age 45-75 01/17/2024 01/17/20 23, 08/27/2021, 07/24/2020, Additional history exists BMI (ht and wt on same day) for age 18+ 03/09/2024 03/09/2023, 01/13/2022, 10/25/2021, Additional history exists Depression screening for age 12+ 03/09/2024 03/09/2023, 01/13/2022, 07/23/2020, Additional history exists Medicare Wellness for age 65+ 03/09/2024 03/09/2023, 01/13/2022 Tetanus booster 04/19/2024 04/19/2014, 05/05/2008 Lipids for age 45-75 08/23/2027 08/22/2022, 10/25/2021, 10/22/2020, Additional history exists Colonoscopy through age 75 07/06/203007/06, 05/11/2012, 05/11/2012, Additional history exists Tdap Completed 04/19/2014, 05/05/2008 Zoster (shingles) series for age 50+ Completed 02/18/2018, 07/28/2017, 06/10/2015 COVID-19 vaccine series Completed 01/31/20, 12/31/2021, 08/05/2021, Additional history exists DEXA/DXA scan for age 65+ Completed 03/17/2023, 11/2011 Pneumococcal series for age 65+ Completed 4 Procedures Procedure Name Priority Date/Time Associated Diagnosis Comments BASIC METABOLIC PANEL Routine 07/31/2023 11:01 AM CDT Primary osteoarthritis of right knee XR DXA BONE DENSITY 2 SITES AXIAL Routine 03/17/2023 11:58 AM RADIO EQUIPMENT REPAIRER Menopause SCAN-MAMMOGRAPHY REPORT 01/16/2023 12:00 AM CDT LIPID PANEL W REFLEX MEASURED LDL Routine 08/22/2022 10:10 AM CDT Screening cholesterol level SCAN-COLONOSCOPY 07/06/2020 12:0 0 AM CDT from Last 3 Months or Most Recently Relevant to Health Maintenance Results * (ABNORMAL) BASIC METABOLIC PANEL (07/31/2023 11:01 AM CDT) SODIUM 140 136 - 145 mmol/L 07/31/2023 9:02 PM CDT [facility] POTASSIUM 4.5 3.5 - 5.1 mmol/L 07/31/2023 9:02 PM CDT [facility] CHLORIDE 102 98 - 107 mmol/L 07/31/2023 9:02 PM CDT [facility] CO2,TOTAL 27 22 - 29 mmol/L 07/31/2023 9:02 PM CDT [facility] ANION GAP 11 5 - 18 07/31/2023 9:02 PM CDT [facility] GLUCOSE 115(H) 70 - 99 mg/dL 07/31/2023 9:02 PM CDT [facility] CALCIUM 9.3 8.8 - 10.2 mg/dL 07/31/2023 9:02 PM CDT [facility] BUN 16 8 - 23 mg/dL 07/31/2023 9:[address] [facility] CREATININE 0.75 0.50 - 0.90 mg/dL 07/31/2023 9:[address] [facility] BUN/CREAT RATIO 21(H) 10 - 20 9:02 PM [facility] eGFR 87(L) >90 mL/min/1.7 3m2 07/31/2023 9:[address] [facility] Comment:As of 2021, eG FR is calculated by the CKD-EPI creatinine equation without race adjustment. ??eGFR can be influenced by muscle mass, exercise, and diet. ??The reported eGFR is an estimation only and is only applicable if the renal function is stable. Blood BLOOD SPECIMEN / Unknown Venipuncture / Unknown 07/31/2023 11:01 AM CDT 07/31/2023 11:02 AM CDT Judith [place] [facility]MI[facility] [address] [place] [id number], * (ABNORMAL) XR DXA BONE DENSITY 2 SITES AXIAL [73777.1] (03/17/2023 11:58 AM RADIO EQUIPMENT REPAIRER) Anatomical Region Laterality Modality Spine, HIPS, HIPL, HIPR Other Impressions 03/18/2023 9:12 AM RADIO EQUIPMENT REPAIRER Osteopenia. RECOMMENDATIONS: The National Osteoporosis Foundation recommends pharmacologic treatment for patients with T-scores of -2.5 or less, patients with prior history of fragility fractures, or patients with 10-year probability of greater than 3% at hips or greater than 20% of suffering major osteoporotic fractures. Recommend continued optimization of calcium and vitamin D intake through dietary means and/or supplementation and regular exercise. Consider pharmacologic therapy for osteopenia with increased fracture risk. Follow-up bone density reading in 2 years if therapy initiated to assess therapeutic efficacy. Judith Encinas PA-C [facility] 03/18/2023 ?? Narrative 03/18/2023 9:12 AM RADIO EQUIPMENT REPAIRER For Patients: Results are automatically released to your [employer] account once available, in compliance with federal regulations. This means that you may see your results before your provider has had a chance to review them. Please allow 2-3 business days for your provider to comment on the results. XR DXA Bone Mineral Density (BMD) EXAM LOCATION: [address] [address] PATIENT NAME: Shelley Carlos DATE OF : 1955 EXAM DATE: 03/17/2023 REQUESTING PROVIDER: Judith Encinas PA GENDER AT : female HEIGHT: 4' 11.02 (03/09/2023) WEIGHT: ??93 lb 14.4 oz (03/09/2023) MENOPAUSAL STATUS: Postmenopausal RACE/ETHNICITY: White RISK FACTORS: Bariatric Surgery, Family History of Osteoporosis, Family History of Hip Fracture (parental), Weight < 127 lbs., and White Race CURRENT MEDICATION FOR BONE LOSS: NONE INDICATION: Menopause COMPARISON DATE(S): 2011 DXA scans are compared to prior studies for a patient only when the two (or more) studies were performed on the same scanner. It is not possible to compare data generated on one scanner to data from another because there are not standards in DXA equipment. This applies even if the two scanners are made by the same leather sorter. PROCEDURE: Dual-energy x-ray absorptiometry performed with routine technique. Reporting is completed in the form of a T-score. The T-score represents the standard deviation from peak bone mass based on young healthy adult. A Z-score is used for diagnosis in premenopausal women, and for men under the age of 50. FINDINGS: RESULT LUMBAR SPINE L1-L4(L2 &L3) ??BMD: 0.905 g/cm2 T-Score: - 2.2 Z-Score: + 0.2 Change from prior in 2012: ??Decrease 13.6%. RESULTS FEMUR Left femoral neck BMD: 0.752 g/cm2 T-Score: - 2.1 Z-Score: + 0.0 Change from prior in 2012: ??Decrease 20.9%. Right femoral neck BMD: 0.728 g/cm2 T-Score: - 2.2 Z-Score: - 0.2 Change from prior in 2012: ??Decrease 24.9%. Left hip BMD: 0.789 g/cm2 T-Score: - 1.7 Z-Score: + 0.1 Change from prior in 2012: ??Decrease 22.9%. Right hip BMD: 0.808 g/cm2 T-Score: - 1.6 Z-Score: + 0.3 Change from prior in 2012: ??Decrease 22.9%. WHO criteria: Normal: T-score at or above -1 SD Osteopenia: T-score between -1.1 and -2.4 SD Osteoporosis: T-score at or below -2.5 SD FRAX RISK CALCULATION (USED FOR OSTEOPENIA ONLY): 10-year probability of major osteoporotic fracture: 17.6%. 10-year probability of hip fracture: 3.3%. Judith [place] [facility] * SCAN-MAMMOGRAPHY REPORT (01/16/2023 12:00 AM CDT) Anatomical Region Laterality Modality Other Scanner OTHER * (ABNORMAL) LIPID PANEL W REFLEX MEASURED LDL (08/22/2022 10:10 AM CDT) CHOLESTEROL,TOTAL 266 mg/dL 023 6:33 PM CDT [facility] Comment: Cholesterol, Total Reference Ranges Desirable <200 mg/dL Borderline 200-239 mg/dL High >=240 mg/dL TRIGLYCERIDES 152(H) <150 mg/dL 08/22/2022 6:33 PM CDT [facility] HDL CHOLESTEROL 75 >40 mg/dL 6:33 PM CDT [facility] NON-HDL CHOLESTEROL 191(H) <145 mg/dl 08/22/2022 6:33 PM CDT [facility] CHOL/HDL RATIO 3.55 <4.50 08/22/2022 6:33 PM CDT [facility] LDL CHOLESTEROL 161(H) <=130 mg/dL 08/22/2022 6:33 PM CDT [facility] VLDL CHOLESTEROL 30 <=30 mg/dL 08/22/2022 6:33 PM CDT [facility] PROVIDER ORDERED STATUS RANDOM 08/22/2022 6:33 PM CDT [facility] Blood BLOOD SPECIMEN / Unknown Venipuncture / Unknown 08/22/2022 10:10 AM CDT 08/22/2022 10:10 AM CDT Judith [place] [facility] [address] [place] [address], [place] * SCAN-COLONOSCOPY (07/06/2020 12:00 AM CDT) Scanner OTHER from Last 3 Months or Most Recently Relevant to Health Maintenance Additional Health Concerns Infection Onset Date Last Indicated CLOSTRIDIUM DIFFICILE 03/10/2018 03/10/2018 Insurance Payer Benefit Plan / Group Subscriber ID Effect corrie Dates Phone Address Type [employer] [id number] 04/25/2016-Prese nt [address] [address] [place] [address] [employer] ADV[employer]AGE MR [id number] 12/19/2021-Prese nt [address] [place] [address] Care Teams In Home Aide Relationship Specialty Start Date End Date Judith Encinas PA [address] [place] [address] PCP - General Family Practice 10/03/15
--- NOTE | 2023-08-10 07:03 | SUR.PREOP ---
SAME DAY SURGERY LOCAL INJECTION SITE VERIFICATION WAS PERFORMED BY SURGEON AND PATIENT PRIOR TO LOCAL ANESTHETIC BEING INJECTED TO OPERATIVE SITE.
[2023-08-10] MEDS: BUPIVACAINE 0.5% 30 ML INJECTION (07:06)
--- NOTE | 2023-08-10 07:31 | PM.ORPRC ---
Procedure Note Date of procedure: 08/10/23 Procedure: PREOPERATIVE DIAGNOSIS: 1. Left long finger flexor tenosynovitis - trigger finger POSTOPERATIVE DIAGNOSIS: 1. Left long finger flexor tenosynovitis - trigger finger PROCEDURE: 1. Left long finger flexor tendon sheath open release (A1 ritesh) SURGEON: Israel Lund MD. UNDERWRITING SPECIALIST: THANH Brooks ANESTHESIA: Local anesthetic 4ml via 50:50 mixture of 2 % Lidocaine with epi and 0.5% marcaine plain EBL: 2ml IMPLANTS: None TOURNIQUET: None COMPLICATIONS: None evident INDICATIONS: The patient is a pleasant 67-year-old female who has experienced left long finger catching/triggering for number of months. It has progressively gotten worse. Given the failure of nonoperative management, and how this affects daily life, surgery was recommended. DESCRIPTION OF PROCEDURE: Following a thorough discussion of risks, benefits, and alternatives consent was obtained and the operative digit(s) was marked. The patient was brought to the operating room and placed supine on the operating table. Local anesthesia induction was undertaken in preop holding. No antibiotics were administered as this was planned to be a local case only. Proper time-out was performed identifying proper patient, site, and procedure. The operative extremity was prepped and draped in the appropriate sterile fashion using ChloraPrep. An incision was made on the palmar surface of the hand overlying the MCP joint region of the appropriate digit(s) respecting the palmar creases being cautious not to cross these perpendicularly. Sharp incision through the skin, and blunt dissection through subcutaneous tissue allowing protection of crossing neurologic structures. The A1 ritesh was visualized directly. It was incised sharply with a 15 blade. It was released completely from its distal to proximal extent under direct visualization. The tendon was inspected and found to be mildly striated consistent with some friction. Otherwise, it was intact. The tendon was removed out of the wound, and further inspected. The patient was asked to manually flex and extend the digits and showed no further catching. The catching which was visualized after tourniquet inflation, was no longer evident with reproduction of a manual fist and relaxation. Closure was performed with 4-O nylon in interrupted fashion. Soft dressings were applied, and the patient was transferred to the recovery room in stable condition. PLAN: 1. Encourage elevation of the operative extremity. 2. Range of motion and icing of the fingers and hand/wrist as tolerated/needed. 3. Ibuprofen/acetaminophen and/or oxycodone as needed for pain control. 4. Follow up with PA visit in 12-16 days for wound check and suture removal.
== END 2023-08-10 07:45 | disposition home or self-care (01) ==
PROVIDERS: PCP Physician Assistant Medical; Visit Provider Orthopaedic Surgery Sports Medicine
PROC: (CPT 26055; principal; 2023-08-10 07:15)
DX: M65.332 Trigger finger, left middle finger (principal); M65.842 Other synovitis and tenosynovitis, left hand
CPT/HCPCS: 26055; J0665

== ENCOUNTER 2023-11-10 08:57 | Outpatient (CLI) | payer MEDICARE, SELFPAY ==
--- OUTSIDE RECORDS SUMMARY | 2023-11-10 09:00 | XMS_ITS | Clinical Summary ---
Author Organization [employer] Address [place], [place] [address] Care Team Providers Care Magazine Repairer Name Role Phone Judith Encinas Primary Care Provider Allergies Active Allergy Reactions Criticality Noted Date Comments Ibuprofen GI Upset Medium 01/04/2018 Penicillins 03/11/2008 Sulfa (Sulfonamide Antibiotics) Nausea Only 04/10/2015 Acetaminophen Stomach Upset 08/18/2016 Patient does take tylenol. Medications Medication Sig Dispensed Refills Start Date End Date Status cyclobenzaprine (FLEXERIL) 10 mg tabletIndications:Mus abhijeet spasm,Headache syndrome TAKE 1 TABLET BY MOUTH TWICE A DAY NEEDED FOR MUSCLE SPASM 90 Tablet 1 09/17/2022 Active traZODone (DESYREL) 100 mg tabletIndications:Ins omnia, unspecified type Take 1-2 Tablets (100-200 mg) by mouth at bedtime if needed for Sleep. 180 Tablet 3 12/09/2022 Active pantoprazole (PROTONIX) 40 mg delayed-release tabletIndications:Chr onic GERD TAKE 1 TABLET BY MOUTH EVERY DAY 90 Tablet 2 01/25/2023 Active Yuvafem 10 mcg tab vaginal tabletIndications:Atr ophic vaginitis INSERT 1 TABLET INTO THE VAGINA EVERY THURSDAY AND THURSDAY. 24 Tablet 2 05/20/2023 Active sertraline (ZOLOFT) 50 mg tabletIndications:Anx iety Take 1 Tablet (50 mg) by mouth every morning. 90 Tablet 3 06/05/2023 Active ondansetron (ZOFRAN) 4 mg tabletIndications:Ulysses sea Take 1 Tablet (4 mg) by mouth every 8 hours if needed for Nausea/Vomiting. 30 Tablet 5 06/05/2023 Active estradioL (ESTRACE) 0.01% (0.1 mg/g) vaginal creamIndications:[place] pause syndrome INSERT ONE GRAM INTO THE VAGINA EVERY THURSDAY, THURSDAY AND THURSDAY 42.5 g 2 08/08/2023 Active celecoxib (CELEBREX) 200 mg capsuleIndications:Pr imary osteoarthritis of right knee,DDD (degenerative disc disease), cervical Take 1 Capsule (200 mg) by mouth once daily with a meal. 90 Capsule 3 09/07/2023 Active traMADoL (ULTRAM) 50 mg tabletIndications:Brittany lgia,DDD (degenerative disc disease), cervical TAKE 1.5 TABS BY MOUTH EVERY 6 HRS IF NEEDED FOR CHRONIC PAIN. MAX 6/DAY. 540 TABS MUST LAST 90 DAYS 540 Tablet 09/07/2023 Active Active Problems Problem Noted Date Diagnosed Date [...] Rectal bleeding 04/21/2012 01/13/2022 Menopause syndrome 06/24/2011 2 Encounters Date Type Department Care Team Description 09/07/2023 11:50 AM CDT Office Visit [facility] [address] [place] [address] Judith Encinas PA Medication Management (tramadol) 09/07/2023 Travel from Last 3 Months Immunizations Name Administration [...] (Age 85) chf, had u terine cancer, [place] Social History Tobacco Use Types Packs/Day Years [...] Outcome GA Total Labor Labor/2nd/3rd Weight Sex Type Anes PTL [place] A1 A5 Name Clin Para Para Para Last Filed Vital Signs Vital Sign Reading Time Taken Comments Blood Pressure 120/70 09/07/2023 11:52 AM CDT Pulse 63 09/07/2023 11:52 AM CDT Temperature 37.8 ??C (100.1 ??F) 04/05/2021 10:25 AM APPRENTICE PHOTOGRAPHER Respiratory Rate 16 11/28/2020 11:19 AM CDT Oxygen Saturation 98% 12/09/2022 11:56 AM CDT Inhaled Oxygen Concentration - - Weight 43.9 kg (96 lb 11.2 oz) 09/07/2023 11:52 AM CDT Height 149.9 cm (4' 11.02) 03/09/2023 11:13 AM APPRENTICE PHOTOGRAPHER Body Mass Index 19.52 03/09/2023 11:13 AM APPRENTICE PHOTOGRAPHER Plan of Treatment Health Maintenance Due Date Last Done Comments Hepatitis C screening for ag e 18-79 09[birth year]23/1973 COVID-19 vaccine series ( season) 2023 01/30/2023, 12/31/2021, 08/05/2021, Additional history exists Influenza for age 65+ 12/20/2023 01/14/2021 , [...] for age 50+ Completed 02/18/2018, 07/28/2017, 06/10/2015 DEXA/DXA scan for age 65+ Completed 03/17/2023, 11/2011 Pneumococcal series for age 65+ Completed 4 Procedures Procedure Name Priority Date/Time Associated Diagnosis Comments XR DXA BONE DENSITY 2 SITES AXIAL Routine 03/17/2023 11:58 AM APPRENTICE PHOTOGRAPHER Menopause SCAN-MAMMOGRAPHY REPORT 01/16/2023 12:00 AM CDT LIPID PANEL W REFLEX MEASURED LDL Routine 08/22/2022 10:10 AM CDT Screening cholesterol level SCAN-COLONOSCOPY 07/06/2020 12:0 0 AM CDT from Last 3 Months or Most Recently Relevant to Health Maintenance Results * (ABNORMAL) XR DXA BONE DENSITY 2 SITES AXIAL [75059.1] (03/17/2023 11:58 AM APPRENTICE PHOTOGRAPHER) Anatomical Region Laterality Modality Spine, HIPS, HIPL, HIPR Other Impressions 03/18/2023 9:12 AM APPRENTICE PHOTOGRAPHER Osteopenia. RECOMMENDATIONS: The National Osteoporosis Foundation recommends [...] to assess therapeutic efficacy. Judith Encinas PA-C [facility] 03/18/2023 ?? Narrative 03/18/2023 9:12 AM APPRENTICE PHOTOGRAPHER For Patients: Results are automatically released to your [facility] account once available, in compliance with federal regulations. This means that you may see your results before your provider has had a chance to review them. Please allow 2-3 business days for your provider to comment on the results. XR DXA Bone Mineral Density (BMD) EXAM LOCATION: [address] [address] PATIENT NAME: Shelley Carlos DATE OF : [...] two scanners are made by the same color mixer. PROCEDURE: Dual-energy x-ray absorptiometry performed with routine [...] REFLEX MEASURED LDL (08/22/2022 10:10 AM CDT) [facility] CHOLESTEROL,TOTAL 266 mg/dL 023 6:33 PM CDT [facility] Comment: Cholesterol, Total Reference Ranges Desirable <200 mg/dL Borderline 200-239 mg/dL High >=240 mg/dL TRIGLYCERIDES 152(H) <150 mg/dL 08/22/2022 6:33 PM CDT [facility] HDL CHOLESTEROL 75 >40 mg/dL 3 6:33 PM CDT [facility] [employer] [facility] NON-HDL CHOLESTEROL 191(H) <145 mg/dl 08/22/2022 6:33 PM CDT [facility] CHOL/HDL RATIO 3.55 <4.50 08/22/2022 6:33 PM CDT [facility] LDL CHOLESTEROL 161(H) <=130 mg/dL 08/22/2022 6:33 PM CDT [facility] VLDL CHOLESTEROL 30 <=30 mg/dL 08/22/2022 6:33 PM CDT [facility] PROVIDER ORDERED STATUS RANDOM 08/22/2022 6:33 PM CDT [facility] Blood BLOOD SPECIMEN / Unknown Venipuncture / Unknown 08/22/2022 10:10 AM CDT 08/22/2022 10:10 AM CDT [facility] [address] [place] [address], * SCAN-COLONOSCOPY (07/06/2020 12:00 AM CDT) Scanner OTHER from Last 3 Months or Most Recently Relevant to Health Maintenance Additional Health Concerns Infection Onset Date Last Indicated CLOSTRIDIUM DIFFICILE 03/10/2018 03/10/2018 Insurance Payer Benefit Plan / Group Subscriber ID Effect corrie Dates Phone Address Type [employer] [id number] 04/25/2016-Prese nt [address] [address] [place] [address] [employer] MR [id number] 12/19/2021-Prese nt [address] [place] [address] Care Teams Magazine Repairer Relationship Specialty Start Date End Date Judith Encinas PA [address] [place] [address] PCP - General Family Practice 10/03/15
--- NOTE | 2023-11-10 09:15 | MR_ITS ---
[facility] [address] [facility] [address] Phone:?[phone] Fax:?[phone] Referring Physician Information: Israel Lund M.D. [address] [facility] [address] Phone:?[phone] Fax:?[phone] Patient:Yariel Carlos D.O.B:?1955 Sex:?Female Phone:?[phone] [facility] MRN:?[id number] Exam Date:?11/10/2023 EXAM: MRI of the RIGHT SHOULDER, without contrast CLINICAL INFORMATION: Female, 68 years old, with right shoulder pain. INDICATION: Suspected rotator cuff tear PRIOR SURGERY: History of rotator cuff repair, date unspecified PLAIN FILMS: Radiograph 11/03/2023 COMPARISONS: No prior MRIs available. TECHNICAL INFORMATION: Using a 1.5T MR scanner and a localizing surface coil: Coronals: PD, T2, STIR Sagittals: PDFS, T2 Axials: PD, PDFS SEDATION: None CONTRAST: None FINDINGS: Bones: Proximal humerus: Postoperative changes of rotator cuff repair with anchors in the proximal humerus. Adjacent foci of susceptibility artifact. No fracture. Glenoid: No fracture or marrow edema/pathology. No osseous Bankart lesion. Rotator cuff and muscles/tendons: Supraspinatus: Postoperative changes of supraspinatus tendon repair. Susceptibility artifact obscures evaluation of the anterior distal tendon fibers, however there is no appearance of high-grade or full-thickness tendon tearing, or muscle belly atrophy. Infraspinatus: Mild to moderate infraspinatus tendinosis with interstitial delamination and small region of intrasubstance signal hyperintensity/tearing at the mid distal insertional footprint (coronal series 4 image 18). Teres minor: No tendinopathy, tear or atrophy. Subscapularis: Mild thickening and tendinosis of the subscapularis distal tendon without well-defined rotator cuff tear. Deltoid: No strain or atrophy. Coracoacromial arch: Acromion morphology: Operative changes of acromioplasty, with adequate inferior decompression. Acromiohumeral space: The acromiohumeral space is within normal limits. Coracohumeral space: The coracohumeral space is within normal limits. Acromioclavicular joint: Joint: Postoperative changes of distal clavicle excision, with adequate inferior decompression. Ligaments: Coracoclavicular ligaments are intact. Bursae: Subacromial-subdeltoid: Trace subacromial bursal thickening/bursitis. Subcoracoid: No convincing subcoracoid bursal thickening/bursitis. Biceps tendon: Suspected postoperative changes of biceps tenodesis, with the tendon intact at the repair site. Glenohumeral joint: Effusion/cyst: Trace glenohumeral joint effusion. Articular cartilage: Mild grade 2 chondral thinning and heterogeneity of the humeral head and glenoid articular cartilage without high-grade or full-thickness chondral defect. Loose bodies: No discrete intra-articular body within the joint. Labrum:?Degeneration, fraying, and tearing of the superior labrum. Additional blunting and degeneration posteriorly. No paralabral ganglion cyst is identified. Inferior glenohumeral ligament/axillary pouch:?Intact. The axillary pouch is normal in thickness and signal. No evidence of adhesive capsulitis or capsular injury. IMPRESSION: 1. Postoperative changes of supraspinatus tendon repair. While susceptibility artifact does obscure evaluation of the anterior distal tendon, there is no evidence for high-grade or full-thickness tendon re-tearing. 2. Mild to moderate infraspinatus tendinosis with small region of intrasubstance tearing of the mid distal insertional footprint. 3. Mild subscapularis tendinosis without rotator cuff tear. 4. Postoperative changes of acromioplasty and distal clavicle excision, with adequate inferior decompression. 5. Suspected surgical changes of biceps tenodesis, without tendon intact at the repair site. 6. Minimal/mild glenohumeral joint degenerative change. Trace joint effusion. 7. Degeneration, fraying, and tearing of the superior and posterior labrum, of doubtful clinical significance. KME Electronically signed on 11/10/2023 5:27:00 PM by Charlotte Billingsley M.D.
== END 2023-11-10 08:58 | disposition home or self-care (01) ==
LOC: MRI 08:58
PROVIDERS: PCP Physician Assistant Medical; Visit Provider Orthopaedic Surgery Sports Medicine
DX: M25.511 Pain in right shoulder (principal); S46.812A Strain of other muscles, fascia and tendons at shoulder and upper arm level, left arm, initial encounter; M25.412 Effusion, left shoulder
CPT/HCPCS: 73221

== ENCOUNTER 2023-11-10 11:00 | Outpatient (RCR) | payer MEDICARE, SELFPAY | END 2024-03-09 23:59 | disposition home or self-care (01) | PROVIDERS: PCP Physician Assistant Medical; Visit Provider Physician Assistant Medical | DX: N39.46 Mixed incontinence (principal); Z51.89 Encounter for other specified aftercare | CPT/HCPCS: 97110; 97140; 97162; 97535 ==

== ENCOUNTER 2024-11-16 08:44 | Day surgery (SDC) | payer MEDICARE, SELFPAY ==
[2024-11-16] MEDS: BUPIVACAINE 0.5% 30 ML INJECTION (08:47)
[2024-11-16] MEDS: LIDOCAINE 1%-EPI 1:100,000 20 ML INFILTRATI (08:47)
[2024-11-16 08:58] VITALS: BMI 19.1
[2024-11-16 09:01] VITALS: BP 106/63; PULSE 71; RESP 16; TEMP 36.4; O2SAT 97
[2024-11-16] MEDS: ETHYL CHLORIDE 1 APPLICATION 1 APPLIC TOPICAL (09:04)
[2024-11-16 09:30] VITALS: BP 115/57; PULSE 72; RESP 16; O2SAT 100
[2024-11-16 09:35] VITALS: BP 108/58; PULSE 73; RESP 16; O2SAT 98
[2024-11-16 09:40] VITALS: BP 109/61; PULSE 71; RESP 16; O2SAT 97
[2024-11-16] MEDS: BACITRACIN OINTMENT BULK TUBE 1 APPLIC TOPICAL (09:42)
[2024-11-16 09:55] VITALS: BP 111/60; PULSE 62; RESP 16; TEMP 36.4; O2SAT 97
--- NOTE | 2024-11-16 10:15 | P.ORPRC_ITS ---
Procedure Note Date of procedure: 11/16/24 Procedure: PREOPERATIVE DIAGNOSIS: 1. Right ring finger flexor tenosynovitis - trigger finger POSTOPERATIVE DIAGNOSIS: 1. Right ring finger flexor tenosynovitis - trigger finger PROCEDURE: 1. Right ring finger flexor tendon sheath open release (A1 ritesh) SURGEON: Israel Lund MD. IRONWORK[employer]PER [employer]OP: THANH Brooks ANESTHESIA: Local anesthetic 3ml via 50:50 mixture of 1% Lidocaine with epi and 0.5% marcaine plain EBL: 2mL IMPLANTS: None TOURNIQUET: None COMPLICATIONS: None evident INDICATIONS: The patient is a pleasant 69-year-old female who has experienced right ring finger catching/triggering for number of months. It has progressively gotten worse. Given the failure of nonoperative management, and how this affects daily life, surgery was recommended. DESCRIPTION OF PROCEDURE: Following a thorough discussion of risks, benefits, and alternatives consent was obtained and the operative digit(s) was marked. The patient was brought to the operating room and placed supine on the operating table. Local anesthesia induction was undertaken in preop holding. No antibiotics were administered as this was planned to be a local case only. Proper time-out was performed identifying proper patient, site, and procedure. The operative extremity was prepped and draped in the appropriate sterile fashion using ChloraPrep. An incision was made on the palmar surface of the hand overlying the MCP joint region of the appropriate digit(s) respecting the palmar creases being cautious not to cross these perpendicularly. Sharp incision through the skin, and blunt dissection through subcutaneous tissue allowing protection of crossing neurologic structures. The A1 ritesh was visualized directly. It was incised sharply with a 15 blade. It was released completely from its distal to proximal extent under direct visualization. The tendon was inspected and found to be mildly striated consistent with some friction. Otherwise, it was intact. The tendon was removed out of the wound, and further inspected. The patient was asked to manually flex and extend the digits and showed no further catching. The catching, which was visualized initially, was no longer evident with reprodu ction of a manual fist and relaxation. Closure was performed with 4-O nylon in interrupted fashion. Soft dressings were applied, and the patient was transferred to the recovery room in stable condition. PLAN: 1. Encourage elevation of the operative extremity. 2. Range of motion of the fingers and hand/wrist as tolerated. 3. Ibuprofen/acetaminophen as needed for pain control. 4. Follow up with PA visit in 12-16 days for wound check and suture removal.
== END 2024-11-16 10:07 | disposition home or self-care (01) ==
LOC: OR 08:44
PROVIDERS: PCP Physician Assistant Medical; Visit Provider Orthopaedic Surgery Sports Medicine
PROC: (CPT 26055; principal; 2024-11-16 10:00)
DX: M65.341 Trigger finger, right ring finger (principal); M65.841 Other synovitis and tenosynovitis, right hand
CPT/HCPCS: 26055; J0665